=== PATIENT | female | born 2000 | race Caucasian/White ===

== ENCOUNTER 2020-05-21 11:47 | Emergency (ER) | payer OTHER ==
[~2020-05-21] VITALS: Ht 175.3 cm; Wt 65.8 kg
[~2020-05-21 11:47] MED LIST: IBUPROFEN 600600 M1 PO
[2020-05-21 11:58] LABS: URINE BILIRUBIN NEGATIVE (Negative); URINE BLOOD 1+ (Negative); URINE COLOR YELLOW; URINE GLUCOSE-RANDOM NEGATIVE (Negative); URINE KETONES TRACE (Negative); URINE LEUKOCYTES-REFLEX 1+ (Negative); URINE NITRITE-REFLEX NEGATIVE (Negative); URINE PROTEIN NEGATIVE (Negative); URINE SPECIFIC GRAVITY 1.025 (1.005-1.030); URINE UROBILINOGEN 0.2 E.U./dl (0.2-1.0)
[2020-05-21 12:07] LABS: URINE CLARITY HAZY
[2020-05-21 12:13] LABS: SQUAMOUS 4-10 Moderate /LPF (0-3); URINE WBC-REFLEX 6-15 Few /HPF (0-5)
[2020-05-21 12:14] LABS: BACTERIA-REFLEX 1-9 Few /HPF (None Seen); CASTS None Seen /LPF (None Seen); CRYSTALS None Seen /LPF (None Seen); URINE RBC 0-2 Rare /HPF (0-2)
[2020-05-21] MEDS ORDERED: PYRIDIUM100 M1 PO (12:22)
[2020-05-21] MEDS ORDERED: KEFLEX500 M1 PO (12:22)
[2020-05-21] MEDS ORDERED: IBUPROFEN 600600 M1 PO (12:22)
[2020-05-21 12:41] VITALS: BP 122/82
== END 2020-05-21 12:45 | disposition home or self-care (01) ==
LOC: M.ERS 11:47
PROVIDERS: Family Medicine
DX: N39.0 Urinary tract infection, site not specified (principal)